=== PATIENT | male | born 1955 | race Caucasian/White ===

== ENCOUNTER 2024-11-22 07:42 | Outpatient (CLI) | payer MEDICARE, SELFPAY ==
--- NOTE | ~2024-11-22 | US_ITS ---
EXAMINATION: US abdomen limited DATE: 11/22/2024 08:27 INDICATION: Unspecified jaundice. TECHNIQUE: Multiple grayscale and Doppler ultrasound images of the abdomen were obtained. COMPARISON: None FINDINGS: The pancreas is obscured by bowel gas. The liver is normal without focal lesion. No liver s urface nodularity. There is normal flow in main portal vein. The gallbladder is normal in size contai ns gallstones. No gallbladder wall thickening or sonographic Wesley sign. The common duct is normal a nd measures 3 mm. IMPRESSION: 1. Cholelithiasis. No evidence of acute cholecystitis. Reviewed, dictated and finalized at location B.
--- OUTSIDE RECORDS SUMMARY | 2024-11-22 07:46 | XMS_ITS | Clinical Summary ---
Author Organization [facility] [place] [address] Address [address] [place] [address] Care Team Providers Care Burner Technician Name Role Phone Mahnaz Coles MD Primary Care Provider [phone] Allergies No known active allergies Medications aspirin (ASPIRIN LOW-STRENGTH) 81 mg chewable tablet chew 1 tablet by oral route every day 0 0 06/26/2016 Active imglixze-eig-JO-l ycopen-lutein (CENTRUM SILVER ULTRA MEN'S) 300-600-300 mcg tablet 0 0 06/26/[address] (PROTONIX) 40 mg EC tablet Take 1 tablet (40 mg total) by mouth daily 3 07/09/2018 Active rosuvastatin (CRESTOR) 40 mg tablet TAKE 1 TABLET(40 MG) BY MOUTH DAILY 90 tablet 1 04/30/2024 Active ezetimibe (ZETIA) 10 mg tablet TAKE 1 TABLET(10 MG) BY MOUTH DAILY 90 tablet 1 07/27/2024 Active carvediloL (COREG) 6.25 mg tabletIndications :Essential hypertension Take 1 tablet (6.25 mg total) by mouth 2 (two) times a day with meals 180 tablet 3 09/23/2024 Active Active Problems Problem Noted Date Diagnosed Date Physical deconditioning 10/29/2021 Benign hypertensive heart an d CKD, stage 3 (GFR 30-59), w CHF 10/18/2020 Coronary artery disease invo lving [place] coronary artery of [place] heart without angina pectoris 05/30/2017 Assessment & Plan (05/30/2017 5:39 PM CDT): CAD starting at the age of 40 y.o. 1995: [place], lad stent, later CABG x1 with NEW to the LAD 2001: Unstable angina versus [place], CABG x3 Cough 05/30/2017 Essential hypertension 06/26/2016 Overview (12/20/2016): Essential hypertension Hypercholesterolemia 06/26/2016 Overview (12/20/2016): Hypercholesterolemia Old myocardial infarction 06/26/2016 Overview (12/20/2016): Old [place] (myocardial infarction) Hx of CABG 09/15/2001 Overview (06/26/2017): Cath = occluded LAD, RCA and dz of CX, patent NEW. Re-do CABG w/ left radial fr NEW to OM2 then OM3, and SVG to RCA Resolved Problems Problem Noted Date Diagnosed Date Resolved Date Gynecomastia 05/30/2017 10/29/2021 History of coronary artery bypass surgery 12/10/2016 08/12/2018 Overview (02/07/2017): Hx of CABG Surgical History Surgery Date Site/Laterality Comments CORONARY ARTERY BYPASS GRAFT ANGIOPLASTY CORONARY ARTERY BYPASS GRAFT Medical History Medical History Date Comments Gastroesophageal reflux disease GERD Hx Other Medical Martines's esoph agitis, followed regularly; Comments: PATU 06/26/2016 - Hx of CABG 1995 LAD restenosis a fter PTCA; had NEW to LAD Dr. Heart Hx of CABG 2001 Cath = occluded LAD, RCA and dz of CX, patent NEW. Re-do CABG w/ left radial fr NEW to OM2 then OM3, and SVG to RCA, Dr. Heart Family History Medical History Relation Name Comments Heart disease Father Heart problems ; Heart failure Mother Congestive hea rt failure; Cause of : Congestive heart failure Relation Name Status Comments Father Mother (Age 84) Social History Tobacco Use Types Packs/Day Years Used Date Smoking Tobacco: Never Smokeless Tobacco: Never Tobacco Cessation:Counseling Given: Not Answered Alcohol Use Standard Drinks/Week Comments Yes 0 (1 standard drink = 0.6 oz pur e alcohol) Personal Safety Answer Date Recorded Getting School Help Needed Not on file 10/25 Sex and Gender Information Value Date Recorded Sex Assigned at Not on file 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 [employer] Gender Identity Not on file Sexual Orientation Not on file Obstetrics History Last Filed Vital Signs Vital Sign Reading Time Taken Comments Blood Pressure 124/76 11/24/2023 9:12 AM CDT Pulse 72 11/24/2023 9:12 AM CDT Temperature - - Respiratory Rate 16 05/30/2017 9:28 AM CDT Oxygen Saturation 97% 11/24/2023 9:12 AM CDT Inhaled Oxygen Concentration - - Weight 79.8 kg (176 lb) 11/24/2023 9:12 AM CDT Height 167.6 cm (5' 6 ) 11/24/2023 9:12 AM CDT Body Mass Index 28.41 11/24/2023 9:12 AM CDT Plan of Treatment Health Maintenance Due Date Last Done Comments Colon Cancer Screening-Colonoscopy 1955 Depression Screening 1955 Fall Risk Assessment 1955 Hepatitis C Screening 1955 Prostate Cancer Screening-PSA 1955 Hepatitis B Screening 1973 Zoster Vaccine (1 of 2) 2005 Pneumococcal vaccine 65+ (2 of 2 - PCV) 08/29/2012 1 10/30/2010 DTaP/Tdap/Td Vaccine (2 - Td or Tdap) 08/29/2019 Well Visit 65+ 2020 Influenza Vaccine (#1) 2024 07/20/2013 [place] [address] [employer] [place] [address] [employer] PPO Care Teams Burner Technician Relationship Specialty Start Date End Date Mahnaz Coles MD PCP - General Family Medicine 10/29/21
--- OUTSIDE RECORDS SUMMARY | 2024-11-22 07:46 | XMS_ITS | Referral Summary ---
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 1995: [place], lad stent, later CABG x1 with NEW to the LAD 2001: Unstable angina versus [place], CABG x3 Cough 05/30/2017 Essential hypertension 06/26/2016 Overview (12/20/2016): Essential hypertension Hypercholesterolemia 06/26/2016 Overview (12/20/2016): Hypercholesterolemia Old myocardial infarction 06/26/2016 Overview (12/20/2016): Old [place] (myocardial infarction) Hx of CABG 09/15/2001 Overview (06/26/2017): Cath = occluded LAD, RCA and dz of CX, patent NEW. 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
== END 2024-11-22 07:43 | disposition home or self-care (01) ==
PROVIDERS: PCP Family Medicine; Visit Provider Family Medicine
DX: K80.20 Calculus of gallbladder without cholecystitis without obstruction (principal)
CPT/HCPCS: 76705